=== PATIENT | male | born 1985 | race African-American/Black ===

== ENCOUNTER 2017-12-11 11:25 | Emergency (ER) | payer SELFPAY ==
[2017-12-11] MEDS ORDERED: ACETAMINOPHEN 325 MG TABLET PO ONE (11:30)
[2017-12-11] MEDS ORDERED: KETOROLAC TROMETHAMINE INJ/PF 30 MG/1 ML SDV IV ONE (11:38)
--- NOTE | 2017-12-11 11:39 | ER Document Report ---
ED Medical Screen (RME) - General Chief Complaint: Shoulder Injury Stated Complaint: RIGHT SHOULDER PAIN Time Seen by Provider: 12/11/17 11:37 Mode of Arrival: Wheelchair Information source: Patient TRAVEL OUTSIDE OF THE [place] IN LAST 30 DAYS: No - HPI Patient complains to provider of: R shoulder pain Onset: Just prior to arrival - pt. fell while chasing his dog just [employer], landing on R shoulder. C/o pain and possible dislocation - Related Data Allergies/Adverse Reactions: No Known Allergies Allergy (Verified 12/11/17 11:26) Physical Exam - Vital signs Vitals: Temp Pulse Resp BP Pulse Ox 98.1 F 53 L 16 121/78 99 12/11/17 11:31 12/11/17 11:31 12/11/17 11:31 12/11/17 11:31 12/11/17 11:31 Course - Vital Signs Vital signs: Temp Pulse Resp BP Pulse Ox 98.1 F 53 L 16 121/78 99 12/11/17 11:31 12/11/17 11:31 12/11/17 11:31 12/11/17 11:31 12/11/17 11:31
[2017-12-11] MEDS ORDERED: HYDROMORPHONE HCL INJ/PF 2 MG/ML AMPULE IV ONE (12:26)
--- NOTE | 2017-12-11 12:39 | RADIOLOGY REPORT (SQ) ---
EXAM DESCRIPTION: SHOULDER RIGHT 2 OR MORE VIEWS COMPLETED DATE/TIME: 12/11/2017 12:09 pm REASON FOR STUDY: R shoulder pain COMPARISON: None. NUMBER OF VIEWS: Three views right shoulder. LIMITATIONS: None. FINDINGS: Anterior shoulder dislocation is present. No shoulder separation or fracture otherwise. Clear right lung. OTHER: No other significant finding. IMPRESSION: Anterior shoulder dislocation. TECHNICAL DOCUMENTATION: JOB ID: [id number] Reading location - IP/workstation name: [email or web address]
--- NOTE | 2017-12-11 12:42 | ER Document Report ---
ED Extremity Problem, Upper - General Chief Complaint: Shoulder Injury Stated Complaint: RIGHT SHOULDER PAIN Time Seen by Provider: 12/11/17 11:37 Mode of Arrival: Wheelchair Information source: Patient Notes: 32-year-old male with no significant past medical history presents with complaint of right shoulder pain. Patient states that just prior to arrival he was playing with his dog when he fell forward with his arm outstretched.Patient has had previous dislocation of the right shoulder approximately 7 years ago. Patient admits to doing several shots of vodka and smoking marijuana prior to arrival.Patient denies any head or neck pain. He denies any back pain. He denies any loss of consciousness. TRAVEL OUTSIDE OF THE [place] IN LAST 30 DAYS: No - HPI Patient complains to provider of: Pain, Right. No: Altered sensation, Weakness , Elbow Onset: Just prior to arrival Recent injury: Yes Where: Home, Outdoors Quality of pain: Throbbing Severity of pain: Moderate, Still present Pain Level: 2 Context: Other - fall Associated symptoms: None Exacerbated by: Movement Relieved by: Rest Similar symptoms previously: Yes - 7 years ago sustained dislocation - Related Data Allergies/Adverse Reactions: No Known Allergies Allergy (Verified 12/11/17 11:39) Past Medical History - General Information source: Patient - Social History Smoking Status: Current Every Day Smoker Chew tobacco use (# tins/day): No Frequency of alcohol use: None Drug Abuse: Marijuana Lives with: Family Family History: None Patient has suicidal ideation: No Patient has homicidal ideation: No - Medical History Medical History: Negative Renal/ Medical History: Denies: Hx Peritoneal Dialysis Review of Systems - Review of Systems Constitutional: denies: Chills, Fever EENT: No symptoms reported Cardiovascular: No symptoms reported Respiratory: No symptoms reported Gastrointestinal: No symptoms reported Genitourinary: No symptoms reported Musculoskeletal: Deformity - right shoulder Physical Exam - Vital signs Vitals: Temp Pulse Resp BP Pulse Ox 98.1 F 53 L 16 121/78 99 12/11/17 11:31 12/11/17 11:31 12/11/17 11:31 12/11/17 11:31 12/11/17 11:31 - General General appearance: Appears well, Alert - HEENT Head: Normocephalic, Atraumatic Eyes: Normal Conjunctiva: Normal Extraocular movements intact: Yes Pupils: PERRL Neck: Normal - Respiratory Respiratory status: No respiratory distress Chest status: Nontender Breath sounds: Normal Chest palpation: Normal - Extremities General upper extremity: Normal inspection, Nontender, Normal color, Normal ROM , Normal temperature General lower extremity: Normal inspection, Nontender, Normal color, Normal ROM , Normal temperature, Normal weight bearing. No: Mariana's sign Shoulder: Deformity, Dislocation, Limited ROM. No: Abrasion - Neurological Neuro grossly intact: Yes Cognition: Normal Orientation: AAOx4 [place] Coma Scale Eye Opening: Spontaneous [place] Coma Scale Verbal: Oriented [place] Coma Scale Motor: Obeys Commands Emiliano Coma Scale Total: 15 Speech: Normal Motor strength normal: LUE, RUE - Normal strength and sensation., LLE, RLE Sensory: Normal Course - Re-evaluation Re-evalutation: 12/11/17 13:43 Shoulder reduction performed successfully. Patient was preoxygenated and placed on a monitor. Procedural sedation using Ativan and propofol was used. Repeat x- ray ordered. Sling and swath ordered. 12/11/17 14:27 I reviewed the repeat x-ray of the right shoulder which shows successful relocation of the shoulder.Patient will be discharged home in stable condition to his sister. Shoulder X-Ray 12/11/17 11:38 IMPRESSION: Anterior shoulder dislocation. - Vital Signs Vital signs: Temp Pulse Resp BP Pulse Ox 98.1 F 57 L 17 109/73 100 12/11/17 11:31 12/11/17 13:55 12/11/17 14:46 12/11/17 14:46 12/11/17 14:46 Procedures - Conscious Sedation Conscious sedation Time started: 14:00 Time completed: 02:15 Consent obtained: Yes - Written consent Indication: Right shoulder dislocation Last meal: 4 hours prior to arrival Prior complications: Procedural sedation Normal healthy pt.: P1. - ASA Classification Airway Evaluation: Normal anatomy Mallampati Classification: Class 2 Used during procedure: Pulse ox on pt., electronic device monitor on pt. Medications administered: Other - Ativan, propofol Reversal agents: None I personally performed/intraservice time: Sedation, Procedure, 30 min or less Complications: No - Joint Reduction/Fracture Care Right Shoulder Time completed: 13:44 Consent obtained: Yes Conscious sedation: Yes Pre-procedure NV exam: Yes Post-procedure NV exam: Yes Post-reduction x-ray: Joint reduced Reduction attempts: 1 Complications: No Discharge - Discharge Clinical Impression: Dislocation of right shoulder joint Condition: Good Disposition: HOME, SELF-CARE Instructions: Shoulder Dislocation ([facility]) Prescriptions: Ibuprofen [Motrin 600 Mg Tablet] 600 mg PO TID #15 tablet Forms: Return to Work Referrals: RADHA HAMILTON MD [ACTIVE STAFF] - Follow up as needed
[2017-12-11] MEDS ORDERED: LORAZEPAM INJ 2 MG/1 ML VIAL IV ONE (12:43)
[2017-12-11] MEDS ORDERED: PROPOFOL INJ 200 MG/20 ML VIAL IV ONE (12:43)
[2017-12-11] MEDS ORDERED: NORMAL SALINE 1000 ML 1,000 ML IV ONE (13:02)
--- NOTE | 2017-12-11 14:12 | RADIOLOGY REPORT (SQ) ---
EXAM DESCRIPTION: SHOULDER RIGHT 1 VIEW COMPLETED DATE/TIME: 12/11/2017 2:00 pm REASON FOR STUDY: post reduction COMPARISON: 12/11/2017 NUMBER OF VIEWS: One view. TECHNIQUE: Single AP View acquired of the right shoulder. LIMITATIONS: None. FINDINGS: MINERALIZATION: Normal. BONES: No acute fracture or dislocation. No worrisome bone lesions. JOINTS: No dislocation. VISUALIZED LUNGS AND RIBS: No pneumothorax. No rib fracture. SOFT TISSUES: No radiopaque foreign body. OTHER: No other significant finding. IMPRESSION: INTERVAL RELOCATION RIGHT SHOULDER. TECHNICAL DOCUMENTATION: JOB ID: [id number] [employer]- All Rights Reserved Reading location - IP/workstation name: [email or web address]
[2017-12-11 14:52] VITALS: BP 109/73
== END 2017-12-11 14:51 | disposition home or self-care (01) ==
LOC: ER 11:25
DX: S43.004A Unspecified dislocation of right shoulder joint, initial encounter (principal); M25.511 Pain in right shoulder; W01.0XXA Fall on same level from slipping, tripping and stumbling without subsequent striking against object, initial encounter; Y93.K9 Activity, other involving animal care; Y92.009 Unspecified place in unspecified non-institutional (private) residence as the place of occurrence of the external cause; F17.200 Nicotine dependence, unspecified, uncomplicated; F12.10 Cannabis abuse, uncomplicated
CPT/HCPCS: 99283; 99152; 96374; 96375; 73020; 73030; 23650; L3650; J1885; J1170; J2060; J7030; J2704